=== PATIENT | female | born 1990 | race Caucasian/White ===

== ENCOUNTER 2018-05-17 19:17 | Outpatient (CLI) | payer BC ==
[~2018-05-17] VITALS: Ht 160 cm; Wt 88.9 kg
[2018-05-17 19:51] VITALS: BP 131/77
[2018-05-17 19:55] LABS: BILIRUBIN,URINE NEGATIVE (NEGATIVE); CLARITY,URINE SLIGHTLY CLOUDY; COLOR,URINE YELLOW; GLUCOSE, URINE (UA) NEGATIVE (NEGATIVE); KETONES,URINE 4+ (NEGATIVE); LEUKOCYTE ESTERASE ,URINE 1+ (NEGATIVE); NITRITE,URINE NEGATIVE (NEGATIVE); PH,URINE 5 (5-9); PROTEIN,URINE 1+ (NEGATIVE); UROBILINOGEN,URINE NORMAL (NORMAL)
[2018-05-17] MEDS ORDERED: D5 LR IV SOLUTION 2,000 ML IV ONE ×3 (20:15→22:15)
[2018-05-17 21:20] VITALS: BP 122/73
[2018-05-17] MEDS ORDERED: PREN1TAB86 PO (22:24)
--- NOTE | 2018-05-20 21:03 | Physician Query-Final Dx ---
SISI SHAIKH 05/20/18 2103: Clinic Account Progress/Dx Physician Query: Please give diagnosis Date of Service May 17, 2018 at 19:17 DWIGHT PAZ DO 05/23/18 0932: Clinic Account Progress/Dx DIAGNOSIS: Diagnosis Gastroenteritis Dehydration Contractions without Labor, Undelivered SISI SHAIKH May 20, 2018 21:03 DWIGHT PAZ DO May 23, 2018 09:32
== END 2018-05-17 22:35 | disposition home or self-care (01) ==
LOC: WSo 19:17 → LDRP 19:17 → WSo 22:35
PROVIDERS: ATTEND Family Medicine
DX: O60.03 Preterm labor without delivery, third trimester (principal); O99.613 Diseases of the digestive system complicating pregnancy, third trimester; K52.9 Noninfective gastroenteritis and colitis, unspecified; O99.282 Endocrine, nutritional and metabolic diseases complicating pregnancy, second trimester; E86.0 Dehydration; Z3A.31 31 weeks gestation of pregnancy
CPT/HCPCS: 36415; 81000; 82731; 96360; 96361; 99214